=== PATIENT | male | born 1975 | race Caucasian/White ===

== ENCOUNTER 2019-06-18 20:27 | Emergency (ER) | payer OTHER ==
[~2019-06-18] VITALS: Ht 190.5 cm; Wt 74.8 kg
[2019-06-18] MEDS ORDERED: MEDROLPACK PO (23:13)
[2019-06-18] MEDS ORDERED: ZYRTEC10 M3 PO (23:13)
== END 2019-06-18 23:34 | disposition home or self-care (01) ==
LOC: ER 20:27
DX: T78.49XA Other allergy, initial encounter (principal); R21 Rash and other nonspecific skin eruption

== ENCOUNTER 2020-11-27 22:05 | Emergency (ER) | payer OTHER ==
[~2020-11-27] VITALS: Ht 182.9 cm; Wt 81.6 kg
[~2020-11-27 22:05] MED LIST: BENADRYL25 MG; MEDROLPACK PO; ZYRTEC10 M3 PO
[2020-11-28] MEDS ORDERED: ZITHROMAX500 MG PO (01:46)
[2020-11-28] MEDS ORDERED: KETO10TA2 PO (01:46)
== END 2020-11-28 01:54 | disposition home or self-care (01) ==
LOC: ER 22:05
DX: S00.83XA Contusion of other part of head, initial encounter (principal); S20.212A Contusion of left front wall of thorax, initial encounter; Y08.89XA Assault by other specified means, initial encounter; Y93.89 Activity, other specified; Y92.89 Other specified places as the place of occurrence of the external cause; Y99.8 Other external cause status

== ENCOUNTER 2025-11-02 09:50 | Emergency (ER) | payer OTHER ==
[~2025-11-02] VITALS: Ht 190.5 cm; Wt 74.8 kg
[~2025-11-02 09:50] MED LIST changes: +KETO10TA2 PO; +ZITHROMAX500 MG PO
[2025-11-02 10:58] VITALS: BP 119/80; O2SAT 96
[2025-11-02] MEDS ORDERED: 0.9 % SODIUM CHLORIDE 1,000 ML IV STA (11:26)
[2025-11-02] MEDS ORDERED: DEXAMETHASONE SODIUM PHOSPHATE 4 MG/ML VIAL IM STA (11:26)
[2025-11-02] MEDS ORDERED: FAMOTIDINE/PF 20 MG/2 ML VIAL IV STA (11:27)
[2025-11-02] MEDS ORDERED: CLINDAMYCIN PHOSPHATE 150 MG/ML (600mg) IV ONE (11:30)
[2025-11-02] MEDS ORDERED: DEXAMETHASONE SODIUM PHOSPHATE 4 MG/ML VIAL ONE (12:45)
[2025-11-02] MEDS ORDERED: CLINDAMYCIN PHOSPHATE 150 MG/ML (300mg) ONE (12:45)
[2025-11-02] MEDS ORDERED: FAMOTIDINE/PF 20 MG/2 ML VIAL ONE (12:46)
[2025-11-02 14:02] LABS: BASO % 0.2 % (0.1-1.2); EOS # 0.08 (0.04-0.54); EOS % 0.9 % (0.7-7.0); LYMPH # 1.37 (1.18-3.74); LYMPH % 15.3 % (19.3-53.1); MEAN PLATELET VOLUME 10.10 fl (9.4-12.4); MONO # 0.68 (0.24-0.82); MONO % 7.6 % (4.7-12.5); NEUT # 6.75 (1.56-6.13); NEUT % 75.7 % (34.0-71.1); RED CELL DISTRIBUTION WIDTH 11.9 % (11.6-14.4)
[2025-11-02 14:22] LABS: INR 0.99
[2025-11-02 14:26] LABS: BUN CREA RATIO 14.0 (7.0-25.0); CREATININE SERUM 0.74 mg/dL (0.70-1.30); GFR 111.07; GLUCOSE FASTING 143.0 mg/dL (65-100); OSMOLALITY SERUM 279.0 MOSM/KG (275-295)
[2025-11-02 14:57] LABS: ERYTHROCYTE SEDIMENTATION RATE 36 mm/hr (0-20)
[2025-11-02] MEDS ORDERED: VANCOMYCIN HCL 1,000 MG VIAL IV ONE (15:30)
[2025-11-02] MEDS ORDERED: VANCOMYCIN HCL 1,000 MG VIAL ONE (16:03)
[2025-11-02] MEDS ORDERED: VANCOMYCIN HCL 1,000 MG VIAL IV SCH (17:10)
[2025-11-02] MEDS ORDERED: 0.9 % SODIUM CHLORIDE 1,000 ML IV SCH ×2 (17:15→17:30)
[2025-11-02] MEDS ORDERED: ACETAMINOPHEN 500 MG GEL..CAP PO SCH (17:22)
[2025-11-02] MEDS ORDERED: MORPHINE SULFATE 2 MG/ML SYRINGE IV PRN (17:30)
== END 2025-11-02 18:37 | disposition left against medical advice (07) ==
LOC: ER 09:51
PROVIDERS: General Practice
DX: L02.512 Cutaneous abscess of left hand (principal); Z88.0 Allergy status to penicillin; Z88.1 Allergy status to other antibiotic agents